=== PATIENT | female | born 1945 | race Caucasian/White ===

== ENCOUNTER → 2023-09-28 07:37 | Outpatient (REF) | payer MEDICARE, OTHER, SELFPAY ==
[2023-09-28 09:17] LABS: Microalbumin, Random Urine 11.1 mg/dl (0.6-1.7)
[2023-09-28 09:20] LABS: ALT (SGPT) 23 U/L (0-35); AST (SGOT) 28 U/L (14-36); Albumin 4.4 g/dl (3.5-5.0); Alkaline Phosphatase 102 U/L (38-126); Blood Urea Nitrogen 18 mg/dl (7-17); Calcium 10.2 mg/dl (8.4-10.2); Carbon Dioxide 28 mmol/L (22-30); Chloride 103 mmol/L (98-107); Glucose 126 mg/dl (70-99); HDL Cholesterol 49 mg/dl; LDL Cholesterol, Calculated 59 mg/dl; Potassium 3.9 mmol/L (3.5-5.1); Sodium 140 mmol/L (135-145); Total Bilirubin 0.6 mg/dl (0.2-1.3); Total Cholesterol 124 mg/dl (50-199); Total Protein 7.2 g/dl (6.3-8.2); Triglyceride 83 mg/dl (10-149); Very Low Density Lipoprotein 16 mg/dl (0-30); eGFR > 60.00
[2023-09-28 09:30] LABS: Glycohemoglobin (HgbA1c) 6.6 % (4.0-5.6)
== END ==
LOC: REG 07:37
PROVIDERS: ATTENDING PHYSICIAN Nurse Practitioner Adult Health
DX: E78.00 Pure hypercholesterolemia, unspecified (principal); I10 Essential (primary) hypertension; E11.9 Type 2 diabetes mellitus without complications
CPT/HCPCS: 36415; 80053; 80061; 82043; 83036

== ENCOUNTER → 2024-01-13 13:42 | Outpatient (REF) | payer MEDICARE, OTHER, SELFPAY | LOC: DHVS 13:42 | PROVIDERS: ATTENDING PHYSICIAN Surgery Vascular Surgery; FAMILY PHYSICIAN Internal Medicine | DX: I65.23 Occlusion and stenosis of bilateral carotid arteries (principal); I73.9 Peripheral vascular disease, unspecified | CPT/HCPCS: 93880; 93922; 93925 ==

== ENCOUNTER → 2024-04-04 07:19 | Outpatient (REF) | payer MEDICARE, OTHER, SELFPAY ==
[2024-04-04 09:31] LABS: Glycohemoglobin (HgbA1c) 6.6 % (4.0-5.6)
[2024-04-04 09:40] LABS: ALT (SGPT) 26 U/L (0-35); AST (SGOT) 29 U/L (14-36); Albumin 4.7 g/dl (3.5-5.0); Alkaline Phosphatase 110 U/L (38-126); Blood Urea Nitrogen 21 mg/dl (7-17); Calcium 10.4 mg/dl (8.4-10.2); Carbon Dioxide 31 mmol/L (22-30); Chloride 98 mmol/L (98-107); Glucose 129 mg/dl (70-99); HDL Cholesterol 52 mg/dl; LDL Cholesterol, Calculated 63 mg/dl; Potassium 3.7 mmol/L (3.5-5.1); Sodium 144 mmol/L (135-145); Total Bilirubin 0.4 mg/dl (0.2-1.3); Total Cholesterol 139 mg/dl (50-199); Total Protein 7.7 g/dl (6.3-8.2); Triglyceride 124 mg/dl (10-149); Very Low Density Lipoprotein 24 mg/dl (0-30); eGFR > 60.00
[2024-04-04 09:42] LABS: Microalbumin, Random Urine 4.4 mg/dl (0.6-1.7)
[2024-04-04 16:11] LABS: Vitamin D, 25-OH*** 44.1 ng/mL (30-80)
[2024-04-05 10:14] LABS: Intact PTH 23.7 pg/ml (13.6-85.8)
== END ==
LOC: REG 07:19
PROVIDERS: ATTENDING PHYSICIAN Nurse Practitioner Adult Health; FAMILY PHYSICIAN Internal Medicine
DX: Z00.00 Encounter for general adult medical examination without abnormal findings (principal); E78.00 Pure hypercholesterolemia, unspecified; E11.9 Type 2 diabetes mellitus without complications; I10 Essential (primary) hypertension; Z68.33 Body mass index [BMI] 33.0-33.9, adult; E83.52 Hypercalcemia
CPT/HCPCS: 36415; 80053; 80061; 82043; 82306; 83036; 83970

== ENCOUNTER → 2024-10-04 08:04 | Outpatient (REF) | payer MEDICARE, OTHER, SELFPAY ==
[2024-10-04 09:53] LABS: ALT (SGPT) 24 U/L (0-35); AST (SGOT) 24 U/L (14-36); Albumin 4.3 g/dl (3.5-5.0); Alkaline Phosphatase 98 U/L (38-126); Blood Urea Nitrogen 19 mg/dl (7-17); Calcium 9.3 mg/dl (8.4-10.2); Carbon Dioxide 29 mmol/L (22-30); Chloride 104 mmol/L (98-107); Glucose 122 mg/dl (70-99); HDL Cholesterol 44 mg/dl; LDL Cholesterol, Calculated 68 mg/dl; Potassium 3.6 mmol/L (3.5-5.1); Sodium 142 mmol/L (135-145); Total Bilirubin 0.5 mg/dl (0.2-1.3); Total Cholesterol 131 mg/dl (50-199); Total Protein 6.9 g/dl (6.3-8.2); Triglyceride 97 mg/dl (10-149); Very Low Density Lipoprotein 19 mg/dl (0-30); eGFR > 60.00
[2024-10-04 10:49] LABS: Microalbumin, Random Urine 15.4 mg/dl (0.6-1.7)
[2024-10-04 10:54] LABS: Glycohemoglobin (HgbA1c) 6.6 % (4.0-5.6)
== END ==
LOC: REG 08:04
PROVIDERS: ATTENDING PHYSICIAN Nurse Practitioner Adult Health
DX: Z00.00 Encounter for general adult medical examination without abnormal findings (principal); E78.00 Pure hypercholesterolemia, unspecified; E11.9 Type 2 diabetes mellitus without complications; I10 Essential (primary) hypertension
CPT/HCPCS: 36415; 80053; 80061; 82043; 83036

== ENCOUNTER → 2025-01-18 12:41 | Outpatient (REF) | payer MEDICARE, OTHER, SELFPAY | LOC: DHVS 12:41 | PROVIDERS: ATTENDING PHYSICIAN Surgery Vascular Surgery; FAMILY PHYSICIAN Internal Medicine | DX: R09.89 Other specified symptoms and signs involving the circulatory and respiratory systems (principal) | CPT/HCPCS: 93880; 93922; 93925 ==

== ENCOUNTER → 2025-02-03 12:42 | Outpatient (REF) | payer MEDICARE, OTHER, SELFPAY | LOC: WDC 12:42 | PROVIDERS: ATTENDING PHYSICIAN Nurse Practitioner Adult Health | DX: Z12.31 Encounter for screening mammogram for malignant neoplasm of breast (principal) | CPT/HCPCS: 77063; 77067 ==

== ENCOUNTER → 2025-04-19 07:35 | Outpatient (REF) | payer MEDICARE, OTHER, SELFPAY ==
[2025-04-19 08:33] LABS: ALT (SGPT) 28 U/L (0-35); AST (SGOT) 27 U/L (14-36); Albumin 4.5 g/dl (3.5-5.0); Alkaline Phosphatase 91 U/L (38-126); Blood Urea Nitrogen 15 mg/dl (7-17); Calcium 10.2 mg/dl (8.4-10.2); Carbon Dioxide 31 mmol/L (22-30); Chloride 98 mmol/L (98-107); Glucose 119 mg/dl (70-99); HDL Cholesterol 39 mg/dl; LDL Cholesterol, Calculated 61 mg/dl; Potassium 3.8 mmol/L (3.5-5.1); Sodium 137 mmol/L (135-145); Total Protein 7.3 g/dl (6.3-8.2); Very Low Density Lipoprotein 19 mg/dl (0-30); eGFR > 60.00
[2025-04-19 09:46] LABS: Glycohemoglobin (HgbA1c) 6.7 % (4.0-5.9)
[2025-04-19 10:22] LABS: Microalbumin, Random Urine 18.9 mg/dl (0.6-1.7)
== END ==
LOC: REG 07:35
PROVIDERS: ATTENDING PHYSICIAN Nurse Practitioner Adult Health
DX: E11.9 Type 2 diabetes mellitus without complications (principal); R80.9 Proteinuria, unspecified; E78.00 Pure hypercholesterolemia, unspecified; I10 Essential (primary) hypertension
CPT/HCPCS: 36415; 80053; 80061; 82043; 83036